=== PATIENT | male | born 1965 ===

== ENCOUNTER → 2018-03-13 | Outpatient (CLI) | payer BC ==
[~2018-03-13] MED LIST: IOHEXOL 180 MG/ML 10 ML VIAL.; LIDOCAINE 1% PF 2 ML VIAL.; methylPREDNISolone ACETATE 40 MG/ML VIAL.; methylPREDNISolone ACETATE 80 MG/ML VIAL.
== END | disposition home or self-care (01) ==
LOC: PNCL 13:31
DX: M50.123 Cervical disc disorder at C6-C7 level with radiculopathy (principal); M19.90 Unspecified osteoarthritis, unspecified site; Z87.891 Personal history of nicotine dependence; H91.90 Unspecified hearing loss, unspecified ear; Z98.890 Other specified postprocedural states; Z79.899 Other long term (current) drug therapy; Z72.89 Other problems related to lifestyle
CPT/HCPCS: 62321; J1030; J1040; Q9965

== ENCOUNTER → 2018-03-27 | Outpatient (CLI) | payer BC ==
[~2018-03-27] MED LIST changes: -LIDOCAINE 1% PF 2 ML VIAL.; +LIDOCAINE 2% PF 2ML VIAL.
== END | disposition home or self-care (01) ==
LOC: PNCL 13:13
DX: M50.123 Cervical disc disorder at C6-C7 level with radiculopathy (principal); Z79.899 Other long term (current) drug therapy; Z72.89 Other problems related to lifestyle; Z98.890 Other specified postprocedural states; Z87.891 Personal history of nicotine dependence; M19.90 Unspecified osteoarthritis, unspecified site; H91.90 Unspecified hearing loss, unspecified ear
CPT/HCPCS: 62321; J1030; J1040; J2001; Q9965

== ENCOUNTER → 2018-04-13 | Outpatient (CLI) | payer BC ==
[~2018-04-13] MED LIST changes: +GLUC1TAB26 PO; +IBUP-1027 PO; -IOHEXOL 180 MG/ML 10 ML VIAL.; -LIDOCAINE 2% PF 2ML VIAL.; +MELO15TA6 PO; +MULT1TAB52 PO; +[UNRECOGNIZED DRUG - REMARK]; -methylPREDNISolone ACETATE 40 MG/ML VIAL.; -methylPREDNISolone ACETATE 80 MG/ML VIAL.
--- NOTE | 2018-04-13 23:26 | PAIN ---
DATE OF SERVICE: 04/13/2018 DIAGNOSIS: Cervical radiculopathy with cervical degenerative disk disease and cervical herniated disk. HISTORY OF PRESENT ILLNESS: The patient is a 52-year-old male who returns for followup status post cervical epidural steroid injections x 2. The patient is doing very well, approximately 75% improvement in his pain in the neck and left upper extremity. The patient reports still some pain and tingling with a shocking sensation with looking up very high with left arm over his neck and then raising his left arm above his head can cause some electrical sensation in the arms, which is only very infrequent. The patient reports it does not awaken him from sleep at night. He is sleeping well, reports the pain is 7 on a scale of 10 at its worst, 2 on average, 1 its least and is a 2 today. The patient reports it is aching, tingling on and off in intensity doing much better than previously. The patient reports his left arm has some numbness and tingling again when moving certain ways, but otherwise doing quite well. The patient reports no new changes or other deficits. PHYSICAL EXAMINATION: VITAL SIGNS: The patient's blood pressure 134/104, pulse 85, respirations 16, temperature 98.4 degrees Fahrenheit. Height is 6 feet 1 inch, weight is 225 pounds. GENERAL: The patient is awake, alert, oriented, appropriate, very pleasant demeanor. HEENT: Head shows normocephalic, atraumatic. Extraocular movements are intact, symmetrical. Oral cavity: Mucous membranes moist and pink. Dentition is intact. NECK: Shows anterior throat supple without palpable lymphadenopathy noted. Swallow reflex symmetrical. CHEST: Shows normal on inspection. Breath sounds clear to auscultation bilaterally. HEART: Shows S1, S2 clear. No murmurs auscultated. ABDOMEN: Soft, nontender, nondistended. No palpable organomegaly. No rebound or guarding demonstrated. BACK: Shows spine grossly in the midline. Cervical paraspinous muscle shows symmetrical on inspection, with palpation shows some minor tenderness with palpation in the inferior aspect of the cervical paraspinous musculature diffusely and into the superior medial trapezius, but only diffusely again without radiation, without trigger points. The patient has full rotational motion of cervical spine, both laterally as well as extension and flexion without significant pain reported. Some minor tingling with full extension on the left. Upper extremity showed deep tendon reflexes at 2+ in the biceps and triceps tendons. Motor exam is strong with hospital manager strength rated 4/5 on the left, 5/5 on the right. Bicep and tricep flexion is 5/5, equal and symmetrical, peripheral pulses are 2+ radial distribution. No peripheral edema is noted. Options were discussed with the patient. The patient's old chart was reviewed as well as his current medication regimen updated. Current review of systems updated today as well. We will hold on any further injections as the patient is doing quite a bit better. Maintain stretching and streaking exercises and will try Flexeril at 10 mg t.i.d. The patient was given instruction as well as side effects to be aware with medication, especially sedation and we will try this just at night first. The patient will return to the clinic in approximately 2 weeks or as necessary, would like to call for his next appointment. MELISSA HARRY MD DR: NIC/melina JOB#: [id number] / [id number]
== END | disposition home or self-care (01) ==
LOC: PNCL 13:23
PROVIDERS: ATTEND Anesthesiology
DX: M50.10 Cervical disc disorder with radiculopathy, unspecified cervical region (principal); M19.90 Unspecified osteoarthritis, unspecified site; Z87.891 Personal history of nicotine dependence
CPT/HCPCS: 99212